=== PATIENT | male | born 1985 | race Caucasian/White ===

== ENCOUNTER 2023-05-23 14:06 | Emergency (ER) | payer OTHER ==
[2023-05-23 15:07] VITALS: TEMP 98.3
--- NOTE | 2023-05-23 15:21 | ED ---
Upper Extremity HPI - General Chief Complaint: Extremity Injury, Upper Stated Complaint: finger lac Time Seen by Provider: 05/23/23 14:22 Source: patient, RN notes reviewed Mode of arrival: ambulatory Limitations: no limitations - History of Present Illness Initial Comments: This is a 37-year-old male who presents to the emergency department for a finger amputation. States that a couple of days ago he got his right ring finger stuck in a tailgate, causing a partial amputation to the tip. He was seen at [place] and the wound was bandaged and he was advised to follow-up with orthopedics. Tetanus vaccine was updated and he was also started on antibiotics. They did refer him to orthopedics, but states that that office does not accept his insurance. He would like a second opinion and evaluation of the finger. States that he does not like how they bandaged it. Denies being in substantial pain at this time. - Related Data Allergies Allergy/AdvReac Type Severity Reaction Status Date / Time Penicillins Allergy Swelling Verified 05/23/23 14:15 Review of Systems ROS Statement: Those systems with pertinent positive or pertinent negative responses have been documented in the HPI. ROS Other: All systems not noted in ROS Statement are negative. Past Medical History Past Medical History: No Reported History Additional Past Medical History / Comment(s): pectus intravatum History of Any Multi-Drug Resistant Organisms: None Reported Past Surgical History: No Surgical Hx Reported Past Psychological History: No Psychological Hx Reported Smoking Status: Former smoker Past Alcohol Use History: None Reported Past Drug Use History: Marijuana General Exam Limitations: no limitations General appearance: alert, in no apparent distress Head exam: Present: atraumatic, normocephalic, normal inspection Respiratory exam: Present: normal lung sounds bilaterally. Absent: respiratory distress, wheezes, rales, rhonchi, stridor Cardiovascular Exam: Present: regular rate, normal rhythm, normal heart sounds. Absent: systolic murmur, diastolic murmur, rubs, gallop, clicks Extremities exam: Present: other (Partial amputation to the tip of the right ring finger. Partially visualized bone. No active bleeding.) Course Vital Signs 05/23/23 05/23/23 14:09 16:03 Temperature 98.3 F Pulse Rate 93 75 Respiratory 18 20 Rate Blood Pressure 122/70 119/72 O2 Sat by Pulse 97 99 Oximetry Procedures - Nerve Block Consent Obtained: verbal consent Local Anesthetic Used: Lidocaine 1% Amount of anesthesia used: 3 Side: right Nerve Blocks: digital Procedure Successful: Yes Complications: none Patient Tolerated Procedure: well Medical Decision Making - Medical Decision Making This is a 37-year-old male who presents to the emergency department for a partial amputation to the right ring finger. Was pt. sent in by a medical professional or institution? @ -No Did you speak to anyone other than the patient for history? @ -No Did you review nursing and triage notes? @ -Yes, and I agree, it is accurate with regards to the patient's symptoms. Were old charts reviewed? @ -No Differential Diagnosis? @ -Not applicable EKG interpreted by me (3pts min.)? @ -Not obtained X-rays interpreted by me (1pt min.)? @ -Not obtained CT interpreted by me (1pt min.)? @ -Not obtained U/S interpreted by me (1pt. min.)? @ -Not obtained What testing was considered but not performed? (CT, X-rays, U/S, labs)? Why? @ -None What meds were considered but not given? Why? @ -None Did you discuss the management of the patient with other professionals? @ -No Did you reconcile home meds? @ -No Was smoking cessation discussed for >3mins.? @ -No Was critical care preformed (if so, how long)? @ -No Were there social determinants of health that impacted care today? How? (Homelessness, low income, unemployed, alcoholism, drug addiction, transportation, low edu. Level, literacy, decrease access to med. care, [facility], rehab)? @ -No Was there de-escalation of care discussed even if they declined? (Discuss DNR or withdrawal of care, Hospice)? @ -No What co-morbidities impacted this encounter? (DM, HTN, Smoking, COPD, CAD, Cancer, CVA, Hep., AIDS, mental health diagnosis, sleep apnea, morbid obesity)? @ -None Was patient admitted / discharged? @ -Discharged. Patient's wound was cleansed and rebandaged per his request. He is already on antibiotics and has pain medication at home. Digital block performed prior to rebandaging the wound per the patient's request. He was also given information for local orthopedic offices, in the event they may accept his insurance. Patient discharged home in stable condition Undiagnosed new problem with uncertain prognosis? @ -None Drug Therapy requiring intensive monitoring for toxicity (Heparin, Nitro, Insulin, Cardizem)? @ -None Were any procedures done? @ -Digital block Diagnosis/symptom? @ -Open fracture of DIP joint Acute, or Chronic, or Acute on Chronic? @ -Acute Uncomplicated (without systemic symptoms) or Complicated (systemic symptoms)? @ -Uncomplicated Side effects of treatment? @ -None Exacerbation, Progression, or Severe Exacerbation] @ -Not applicable Poses a threat to life or bodily function? @ -No Return precautions reviewed in depth, the patient is instructed to return to the emergency department with any new, worsening, or concerning symptoms. Patient verbalized understanding. This case was discussed in detail with the attending ED physician, Dr. Payne. Presentation, findings, and treatment plan discussed in detail as well. Disposition Clinical Impression: Open fracture subluxation of distal interphalangeal joint Disposition: HOME SELF-CARE Instructions (If sedation given, give patient instructions): Finger Fracture (ED) Additional Instructions: Return to the emergency department with any new, worsening, or concerning symptoms. Continue taking your antibiotic as prescribed. Alternate with ibuprofen and Tylenol as needed for pain relief. You can try contacting the orthopedic providers as listed below to see if they will accept your insurance for a follow-up appointment. Is patient prescribed a controlled substance at d/c from ED?: No Referrals: None,Stated [Primary Care Provider] - 1-2 days Teodora Stern DO [Doctor of Osteopathic Medicine] - 1-2 days Julien Crawford DO [Doctor of Osteopathic Medicine] - 1-2 days Time of Disposition: 15:21
[2023-05-23] MEDS: GELATIN SPONGE,ABSORB (SMALL) 1 EACH SPONGE TOPICAL STA (15:23)
[2023-05-23] MEDS: LIDOCAINE 1% INJ 10MG/ML (20 ML MDV) SQ ONE (15:23)
[2023-05-23 16:11] VITALS: BP 119/72; PULSE 75; RESP 20
== END 2023-05-23 16:04 | disposition home or self-care (01) ==
LOC: EC 14:06
DX: S62.634B Displaced fracture of distal phalanx of right ring finger, initial encounter for open fracture (principal); F12.90 Cannabis use, unspecified, uncomplicated; Z87.891 Personal history of nicotine dependence; Z88.0 Allergy status to penicillin; X58.XXXA Exposure to other specified factors, initial encounter
CPT/HCPCS: 64450; 99283; J2001

== ENCOUNTER 2023-05-29 11:16 | Day surgery (SDC) | payer OTHER ==
[2023-05-25 13:18] VITALS: BMI 21.4
[2023-05-29] MEDS: LACTATED RINGERS 1,000 ML IV ONE (11:32)
[2023-05-29] MEDS: DEXAMETHASONE SOD PHOSPHATE 4 MG/ML 1 ML VIAL IVP ONE (11:55)
[2023-05-29] MEDS: ONDANSETRON 4 MG/2 ML VIAL ONE (11:55)
[2023-05-29 12:01] VITALS: RESP 16
[2023-05-29] MEDS ORDERED: LIDOCAINE 1% INJ 10MG/ML (20 ML MDV) ONE (12:25)
[2023-05-29] MEDS ORDERED: KETOROLAC 15 MG/ML 1 ML VIAL ONE (12:25)
[2023-05-29] MEDS ORDERED: fentaNYL (PF) 50 MCG/ML 2 ML AMP ONE (12:25)
[2023-05-29] MEDS ORDERED: PROPOFOL 10 MG/ML 20 ML VIAL IV ONE (12:25)
[2023-05-29] MEDS: BUPIVACAINE (PF) 0.25% 30 ML VIAL SQ ONE ×2 (12:48→12:59)
--- NOTE | 2023-05-29 13:12 | P.OP ---
Date of Procedure: 05/29/23 Procedure(s) Performed: PREOPERATIVE DIAGNOSES: 1. Right hand middle finger distal phalanx fracture, displaced with grade 2 open injury POSTOPERATIVE DIAGNOSES: 1. Right hand middle finger distal phalanx fracture, displaced with grade 2 open injury PROCEDURES PERFORMED: 1. Right hand disarticulation of distal interphalangeal joint with minimal contouring/shortening of middle phalanx 2. Right hand middle finger wound delayed primary closure (3 cm) 2. Irrigation and debridement of open wound ANESTHESIA: Mac DRIVER UTILITY WORKER: None COMPLICATIONS: None ESTIMATED BLOOD LOSS: Less than 5 mL. DISPOSITION: To post-anesthesia care unit INDICATIONS: Chago is a 37 year old male with a history of sustaining a fracture to the right hand middle finger distal phalanx. The fracture is basically an amputation of the distal phalanx at the proximal portion of the shaft. I have advised open treatment of the fingertip with irrigation and debridement of the open wound and shortening of the bone with delayed primary closure. I have explained the risks and potential complications of this surgery as being inclusive of but not limited to bleeding, infection, scarring, discomfort, blood vessel and/or nerve damage, stiffness, deformity, rotational abnormality, need for further surgery, and other risks. We have extensively discussed the risk of stiffness of the PIP joint, which is something that commonly occurs with these kinds of injuries. We have discussed the need for possible rehabilitation and occupational therapy to regain what motion he can in that finger. The consent form has been signed. PROCEDURE: After appropriate consent was obtained, the patient was taken to the operating room placed in the supine position. Anesthesia was initiated, and after confirmation of adequate anesthesia, the patient was carefully positioned. Care was taken to make sure that all pressure points were adequately padded. Prepping and draping were completed in the usual aseptic fashion using Hibiclens. Timeout was called, confirming patient identity, side, procedure, and administration of antibiotics. The left hand middle finger was inspected. The distal phalanx was a short stump with poor amount of pulp skin to be able to cover a simple distal phalanx shortening. Therefore, as planned the distal interphalangeal joint was disartiulated sharply and the distal fragment was discarded. The remaining skin was contoured to provide a good volar pulp with skin coverage. The end of the middle phalanx was contoured to be a flat surface and the condylar flares were removed on both sides using a rongeur. Thorough irrigation with approximately 250 cc of saline was utilized. A small portion of the remaining flexor tendon was also debulked on the volar surface of the middle phalanx. The skin was then able to easily be brought across the middle phalanx and sutured using 3-0 nylon interrupted sutures. Dog ears were removed minimally as necessary for complete closure. There was mild active bleeding which was controlled with pressure. A light dressing was applied with antibiotic ointment and nonadherent dressing gauze, and Hina dressing. U-shaped aluminum splint to protect the surgical site. Neurovascular status was satisfactory. Patient tolerated the procedure well and taken to recovery room in stable condition.
[2023-05-29 13:42] VITALS: TEMP 97.2
[2023-05-29 14:17] VITALS: BP 144/83; PULSE 64
== END 2023-05-29 14:22 | disposition home or self-care (01) ==
LOC: OR 11:16
PROVIDERS: ATTEND Orthopaedic Surgery
DX: S62.632B Displaced fracture of distal phalanx of right middle finger, initial encounter for open fracture (principal); X58.XXXA Exposure to other specified factors, initial encounter
CPT/HCPCS: 13160; J1100; J0690; J2405; J2001; J3010; J1885; J2704; J0665